=== PATIENT | male | born 1990 | race Caucasian/White ===

== ENCOUNTER 2016-06-02 20:15 | Emergency (ER) | payer OTHER ==
[~2016-06-02 20:15] MED LIST: ALBUTEROL17 G1 IH; BACTRIM DS TABL1 TA1 PO; BACTRIM DS TABL1 TA2 PO; CLEOCIN PO; KEFLEX PO; KEFLEX500 M1 PO; LORTAB 5/500 TA1 TA1 PO; LORTAB 7.5-5001 TAB PO; NO MEDICATIONS; PERCOCET5/325 PO; PHENERGAN25 MG PO; RONDEC-DM SYRU120 ML PO; VIBRAMYCIN100 M1 PO; VOLTAREN75 MG PO
== END 2016-06-02 21:10 | disposition left against medical advice (07) ==
LOC: SED 20:15
DX: S39.012A Strain of muscle, fascia and tendon of lower back, initial encounter (principal); F17.210 Nicotine dependence, cigarettes, uncomplicated; Z98.890 Other specified postprocedural states; X58.XXXA Exposure to other specified factors, initial encounter
CPT/HCPCS: 96372; 99283; J1885; J2360

== ENCOUNTER 2016-06-24 20:46 | Emergency (ER) | payer OTHER ==
--- NOTE | ~2016-06-24 | CR63 ---
[facility]. [facility] A Service of [facility] & [facility] RADIOLOGY TEXT RESULTS PATIENT: NUPUR ARNOLD LOCATION: SED : [birth year] UNIT #: [id number] AGE: [address]: Renaldo Martinez SEX: M ORDER DR: [id number] [address] [address] [id number] E MR#: [id number] Acc #: [id number] NAME: NUPUR ARNOLD : 1990 SEX: M STUDY DATE/TIME: 06/24/2016 20:48 UNIT: SED ROOM: STUDY DESCRIPTION: CR Chest 2 View Attending Physician: Renaldo Martinez P.A.-C. Ordering Physician: Renaldo Martinez P.A.-C. Primary Care Physician: Ludwin Argueta M.D. MEDICAL IMAGING REPORT This report is preliminary unless electronic signature is present. EXAM PA and lateral chest HISTORY Chest pain after fall yesterday. FINDINGS 2 views of the chest demonstrate mild left upper thoracic curve. Cardiac size and pulmonary vascularity are normal. No infiltrates or effusions. IMPRESSION No acute findings and no active disease. Dictated by... Jd Jimenez M.D. THIS IS AN ELECTRONICALLY VERIFIED REPORT Jd Jimenez M.D. at 06/25/2016 11:32 PM LOURDES/lionel TD: 06/25/2016 15:45 JOB #: [id number] MEDICAL IMAGING REPORT Page 1 of 1
--- NOTE | ~2016-06-24 | CR151 ---
[facility]. [facility] A Service of [facility] & [facility] RADIOLOGY TEXT RESULTS PATIENT: NUPUR ARNOLD LOCATION: SED : [birth year] UNIT #: [id number] AGE: [address]: Renaldo Martinez SEX: M ORDER DR: [id number] [place] [id number] E MR#: [id number] Acc #: [id number] NAME: NUPUR ARNOLD : 1990 SEX: M STUDY DATE/TIME: 06/24/2016 20:48 UNIT: SED ROOM: STUDY DESCRIPTION: CR Hip Min 2 Views Rt Attending Physician: Renaldo Martinez P.A.-C. Ordering Physician: Renaldo Martinez P.A.-C. Primary Care Physician: Ludwin Argueta M.D. MEDICAL IMAGING REPORT This report is preliminary unless electronic signature is present. EXAM Right hip 2 views HISTORY Right hip pain after fall yesterday FINDINGS AP and oblique examination of the hip shows adequate mineralization of the bones and a normal anatomic relationship of the femoral head with the acetabulum. There are no hypertrophic changes, fractures, dislocation, or joint capsular distension. No radiopaque foreign body is present about the soft tissues of the hip. IMPRESSION Normal hip. Dictated by... Jd Jimenez M.D. THIS IS AN ELECTRONICALLY VERIFIED REPORT Jd Jimenez M.D. at 06/25/2016 11:32 PM DFL/to TD: 06/25/2016 15:49 JOB #: [id number] MEDICAL IMAGING REPORT Page 1 of 1
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
== END 2016-06-24 21:52 | disposition home or self-care (01) ==
LOC: SED 20:46
DX: S70.01XA Contusion of right hip, initial encounter (principal); S20.319A Abrasion of unspecified front wall of thorax, initial encounter; S80.811A Abrasion, right lower leg, initial encounter; F17.210 Nicotine dependence, cigarettes, uncomplicated; W14.XXXA Fall from tree, initial encounter; Y92.009 Unspecified place in unspecified non-institutional (private) residence as the place of occurrence of the external cause
CPT/HCPCS: 36415; 70450; 71020; 73502; 99284